=== PATIENT | female | born 1955 | race Caucasian/White ===

== ENCOUNTER 2018-08-05 16:14 | Emergency (ER) | payer OTHER ==
[~2018-08-05] VITALS: Ht 167.6 cm; Wt 59.0 kg
[~2018-08-05 16:14] MED LIST: ASPI-903 PO; BENA10TA4 PO; CALC500T12 PO; CARV3.12 PO; CHOL400T10 PO; FOLI-49 PO; LEVO50TA7 PO; MECL-77 PO; MELO7.5O PO
[2018-08-05 16:42] VITALS: Ht 167.6 cm; Wt 59.0 kg
[2018-08-05] MEDS ORDERED: LEVO75TA5 PO (20:04)
[2018-08-05] MEDS ORDERED: BENA10TA4 PO (20:05)
[2018-08-05] MEDS ORDERED: CHOL5000 PO (20:05)
[2018-08-05] MEDS ORDERED: ZOLP5TAB7 PO (20:06)
[2018-08-05] MEDS ORDERED: ATOR10TA65 PO (20:07)
[2018-08-05] MEDS ORDERED: ALEN70TA5 PO (20:07)
[2018-08-05] MEDS ORDERED: SOD CHLORIDE 0.9% 1,000 ML IV STA (20:17)
--- NOTE | 2018-08-05 20:17 | ERD ---
ER Documentation Chief Complaint Chief Complaint Complains of abdominal pain x3 days HPI 63-year-old female history of hypertension, hyperlipidemia, thyroid disease and vertigo presents the ED complaining of a 10-day history of intermittent, moderate, sharp and achy, nonradiating, diffuse upper abdominal pain. Pain is intermittent, not related to eating, occurs several times per day lasting several hours. Denies nausea, vomiting, diarrhea or constipation. No hematemesis, hematochezia or melena. No dysuria, polyuria, hematuria or flank pain. Denies chest pain, palpitations or shortness of breath. Today gave her Nexium which seemed to diminish but not relieve her symptoms. No anorexia, night sweats, weight loss, fevers or chills. ROS All systems reviewed and are negative except as per history of present illness. Medications Home Meds Active Scripts Famotidine* (Pepcid*) 20 Mg Tablet, 20 MG PO BID for 10 Days, TAB Prov:KATYA RED MD 08/05/18 Reported Medications Alendronate Sodium* (Fosamax*) 70 Mg Tablet, 70 MG PO Q7D THURSDAY, #4 TAB 08/05/18 Atorvastatin Calcium (Atorvastatin Calcium) 10 Mg Tablet, 10 MG PO QHS, #30 TAB 08/05/18 Zolpidem Tartrate* (Zolpidem Tartrate*) 5 Mg Tablet, 5 MG PO QHS PRN for PRN, #30 TAB 08/05/18 Benazepril Hcl* (Benazepril Hcl*) 10 Mg Tablet, 10 MG PO DAILY, #30 TAB 08/05/18 Cholecalciferol (D3-5) 5,000 Unit Capsule, 5000 UNIT PO DAILY, CAP 08/05/18 Levothyroxine Sodium* (Levothyroxine Sodium*) 75 Mcg Tablet, 75 MCG PO BEFORE BREAKFAST, #30 TAB 08/05/18 Discontinued Reported Medications Carvedilol* (Coreg*) 3.125 Mg Tablet, 3.125 MG PO BID, TAB 03/20/14 Benazepril Hcl* (Benazepril Hcl*) 10 Mg Tablet, 10 MG PO DAILY, TAB 03/20/14 Levothyroxine Sodium* (Levothyroxine Sodium*) 50 Mcg Tablet, 50 MCG PO AC BREAKFAST, TAB 03/20/14 Meclizine Hcl* (Meclizine Hcl*) 25 Mg Tablet, 25 MG PO BID PRN for VERTIGO, TAB 03/20/14 Calcium Carbonate* (Oysco-500*) 1 Tab Tablet, 1 TAB PO BID, TAB 03/20/14 Aspirin* (Aspirin* Chew) 81 Mg Tab.chew, 81 MG PO DAILY, TAB.CHEW 03/20/14 Folic Acid* (Folic Acid*) 1 Mg Tablet, 1 MG PO DAILY, TAB 03/20/14 Cholecalciferol* (Vitamin D*) 400 Unit Tablet, 400 UNIT PO BID, TAB 03/20/14 Meloxicam* (Meloxicam*) 7.5 Mg/5 Ml Oral.susp, 15 MG PO DAILY, ML 03/20/14 Allergies Allergies: Coded Allergies: Penicillins (Verified Allergy, Unknown, 08/05/18) PMhx/Soc Reviewed in chart. As per HPI. Anesthesia Reaction: No Hx Neurological Disorder: No Hx Respiratory Disorders: No Hx Cardiac Disorders: Yes (HTN) Hx Psychiatric Problems: No Hx Miscellaneous Medical Probl: Yes (htn, hypothyroidism,verigo,hemorrhoids) Hx Alcohol Use: No Hx Substance Use: No Hx Tobacco Use: No Smoking Status: Never smoker FmHx No coronary artery disease or cancer Physical Exam Vitals Vital Signs Date Temp Pulse Resp B/P (MAP) Pulse Ox O2 O2 Flow FiO2 Time Delivery Rate 08/05/18 80 16 133/73 100 Room Air 22:58 (93) 08/05/18 82 19 159/75 100 Room Air 21:16 (103) 08/05/18 98.6 84 20 150/82 99 16:42 (104) Physical Exam Const: No acute distress Head: Atraumatic Eyes: Normal Conjunctiva ENT: Normal External Ears, Nose and Mouth. Neck: Full range of motion. No meningismus. Resp: Clear to auscultation bilaterally Cardio: Regular rate and rhythm, no murmurs Abd: Soft, non tender, non distended. Normal bowel sounds Skin: No petechiae or rashes Back: No midline or flank tenderness Ext: No cyanosis, or edema Neur: Awake and alert Psych: Normal Mood and Affect Result Diagram: 08/05/18 2030 08/05/18 2030 Results 24 hrs Laboratory Tests Test 08/05/18 20:30 White Blood Count 9.0 10^3/ul Red Blood Count 4.13 10^6/ul Hemoglobin 11.9 g/dl Hematocrit 36.4 % Mean Corpuscular Volume 88.1 fl Mean Corpuscular Hemoglobin 28.8 pg Mean Corpuscular Hemoglobin Concent 32.7 g/dl Red Cell Distribution Width 13.1 % Platelet Count 310 10^3/UL Mean Platelet Volume 11.0 fl Immature Granulocytes % 0.300 % Neutrophils % 68.3 % Lymphocytes % 21.9 % Monocytes % 7.4 % Eosinophils % 1.7 % Basophils % 0.4 % Nucleated Red Blood Cells % 0.0 /100WBC Immature Granulocytes # 0.030 10^3/ul Neutrophils # 6.1 10^3/ul Lymphocytes # 2.0 10^3/ul Monocytes # 0.7 10^3/ul Eosinophils # 0.2 10^3/ul Basophils # 0.0 10^3/ul Nucleated Red Blood Cells # 0.0 10^3/ul Urine Color YELLOW Urine Clarity CLEAR Urine pH 5.0 Urine Specific [place] 1.014 Urine Ketones TRACE mg/dL Urine Nitrite NEGATIVE mg/dL Urine Bilirubin NEGATIVE mg/dL Urine Urobilinogen NEGATIVE mg/dL Urine Leukocyte Esterase TRACE Kevyn/ul Urine Microscopic RBC 5 /HPF Urine Microscopic WBC 6 /HPF Urine Mucus FEW /HPF Urine Hemoglobin 1+ mg/dL Urine Glucose NEGATIVE mg/dL Urine Total Protein NEGATIVE mg/dl Sodium Level 143 mmol/L Potassium Level 3.7 mmol/L Chloride Level 103 mmol/L Carbon Dioxide Level 27 mmol/L Anion Gap 13 Blood Urea Nitrogen 13 mg/dl Creatinine 0.75 mg/dl Est Glomerular Filtrat Rate mL/min > 60 mL/min Glucose Level 104 mg/dl Calcium Level 9.7 mg/dl Total Bilirubin 0.4 mg/dl Direct Bilirubin 0.00 mg/dl Indirect Bilirubin 0.4 mg/dl Aspartate Amino Transf (AST/SGOT) 22 IU/L Alanine Aminotransferase (ALT/SGPT) 16 IU/L Alkaline Phosphatase 92 IU/L Troponin I < 0.012 ng/ml Total Protein 8.1 g/dl Albumin 4.3 g/dl Globulin 3.80 g/dl Albumin/Globulin Ratio 1.13 Lipase 35 U/L Thyroid Stimulating Hormone (TSH) 0.232 MIU/L Current Medications Medications Dose Sig/Junior Start Time Status Last (Trade) Ordered Route PRN Stop Time Admin Dose Reason Admin Sodium 1,000 ml @ Q1H STAT 08/05/18 DC 08/05/18 Chloride 1,000 mls/hr IV 20:17 08/05/18 20:38 21:16 IV Flush 10 ml STK-MED 08/05/18 DC (NS 10 ml) ONCE .ROUTE 21:17 08/05/18 21:18 Sodium 100 ml @ ud STK-MED 08/05/18 DC Chloride ONCE .ROUTE 21:17 08/05/18 21:18 Iohexol 150 ml STK-MED 08/05/18 DC (Omnipaque ONCE .ROUTE 21:17 08/05/18 300mg/ ml) 21:18 Procedures/MDM DOCUMENTS REVIEWED: ED nurse, prior ED, prior record EKG: Time: 2045. Sinus rhythm. Ventricular rate 77, normal [place] and QRS intervals. No acute ST segment elevation or depression. No axis deviation or ectopy. My Interpretation: Normal EKG IMAGING: PROCEDURE: CT abdomen and pelvis with contrast. CLINICAL INDICATION: Abdominal Pain TECHNIQUE: CT scan of the abdomen and pelvis without oral contrast was performed and is reconstructed at 2.5 mm contiguous axial intervals from the dome of the diaphragm to the inferior pubic rami.. The patient was scanned with intravenous contrast. Sagittal and coronal reformatted images were obtained from the axial source images. The calculated radiation dose measures 506 mGy centimeters. The CTDI measures 9 mGy. Individualized dose optimization technique was used for the performance of this exam. This included 1. Automated exposure control. 2. Adjustment of the mA and / or kV according to the patient's size. 3. Use of iterative reconstructed technique. COMPARISON: None. FINDINGS: The lung bases are clear of any infiltrate or nodule. No effusion is seen. The liver is of normal size, contour and attenuation with no mass or ductal dilatation. No gallstones are visualized. No splenic, adrenal or pancreatic abnormalities present. Kidneys enhance symmetrically and are of normal size and contour. No hydronephrosis, calculus or masses seen. Ureters are of normal course and caliber with no stone. No bladder mass or stone is present. Uterus is been removed. No adnexal mass is visualized. There is no aneurysm. No adenopathy is present. No bowel mass or obstruction is present. The appendix is not confidently visualized.. No phlegmon, ascites or pneumoperitoneum is visualized. There are senescent degenerative changes in the lumbar spine. IMPRESSION: No evidence of urolithiasis, obstructive uropathy or diverticulitis. Nonvisualization appendix. Senescent degenerative changes lumbar spine. Hysterectomy. .Brian Arreaga MD, MD Date Time Electronically viewed and signed by .Brian Arreaga MD, MD on 08/05/2018 22:25 .A/ [employer]-year-old female history of hypertension, hyperlipidemia, thyroid disease and vertigo presents the ED complaining of a 10- day history of abdominal pain. CBC significant for borderline anemia but no leukocytosis or thrombocytopenia. Chemistry negative for electrolyte abn ormalities or renal insufficiency. No hyperbilirubinemia or transaminitis. Lipase is negative. Asymptomatic bacteriuria and antibiotics not indicated. IV hydration administered prior to intravenous contrast. CT of the abdomen pelvis performed to evaluate for an acute intra-abdominal process including but not limited to bowel obstruction, obstructive uropathy, abdominal aortic aneurysm, diverticulitis, pancreatitis, hepatic/biliary pathology and colitis is unremarkable. History of hypothyroidism and TSH is low. No thyroid storm. Abdominal pain of uncertain etiology possibly secondary to gastritis/GERD versus peptic ulcer disease. Abdominal exam is benign without significant tenderness, rebound, guarding or signs of peritonitis. In the absence of signs of serious acute disease patient is stable for discharge with precautionary instructions and outpatient follow-up as counseled. Though the patient's latest blood pressure was elevated (>120/80), the patient has a known history of hypertension and urged to pursue adjustment of their medical therapy within a week with their primary care physician. Please refer to the medication reconciliation form for the current list of hypertensive medications. Counseled patient regarding diagnostic workup, diagnosis and need for followup. Understands the etiology of her symptoms have not been established and urgent, outpatient follow-up is mandatory and need to return to ED immediately if symptoms recur, worsen or any other concerns. Departure Diagnosis: Primary Impression: Acute generalized abdominal pain Additional Impression: Hyperthyroidism Condition: Stable KATYA RED MD Aug 05, 2018 20:17
[2018-08-05] MEDS ORDERED: IOHEXOL 300MG/ML 150 ML BTL ONE (21:17)
[2018-08-05] MEDS ORDERED: SOD CHLORIDE 0.9% 100 ML ONE (21:17)
[2018-08-05] MEDS ORDERED: FAMO-96 PO (22:54)
[2018-08-05 22:58] VITALS: BP 133/73; PULSE 80; RESP 16
== END 2018-08-05 23:01 | disposition home or self-care (01) ==
LOC: E/R 16:14
DX: R10.84 Generalized abdominal pain (principal); E03.9 Hypothyroidism, unspecified; I10 Essential (primary) hypertension
CPT/HCPCS: 36415; 74177; 80053; 81001; 83690; 84443; 84484; 85025; 93005; 96360; J7030; Q9967; Z7502; Z7610